=== PATIENT | male | born 1950 | race Caucasian/White ===

== ENCOUNTER 2017-01-28 17:41 | Emergency (ER) | payer OTHER ==
[2017-01-28] MEDS ORDERED: LIDOCAINE 1 % AMP 5 ML (SUTURES) SUBCUT STA (17:52)
[2017-01-28] MEDS ORDERED: TETANUS DIPHTHERIA TOXOIDS IM ONE (17:52)
[2017-01-28 17:54] VITALS: BP 106/64; TEMP 98.7; BMI 37.4
[2017-01-28] MEDS ORDERED: SILVER NITRATE APPLICATOR TP ONE ×2 (18:02)
[2017-01-28] MEDS ORDERED: TENIVAC IM ONE (18:04)
--- NOTE | 2017-01-28 18:14 | ED.PDOC ---
General ED Provider: Dr. ALYSHA BRADY Chief Complaint: Head Laceration Stated Complaint: head laceration/ forhead Time Seen by Physician: 17:45 (seen with full staff ) Mode of Arrival: Walk-In Information Source: Patient Exam Limitations: No limitations Nursing and Triage Documentation Reviewed and Agree: Yes Trauma/Injury Complaint Exam - Head Injury Complaint/Exam Location of Pain: Reports: Forehead Mechanism of Injury: Reports: Trauma (blunt) Onset/Duration: 20 min ago Symptoms Are: Still present Initial Severity: Moderate Current Severity: Moderate Aggravating: Reports: None Alleviating: Reports: None Associated Signs and Symptoms: Denies: Confusion, Memory loss, Seizure, Epistaxis, Dental malocclusion, Neck pain, Nausea, Vomiting Loss of Consciousness: None SDH Risk Factors: Present: None Related Surgical History: Reports: None Glascow Coma Scale (see protocol): 15 Focal Weakness: Present: None Focal Sensory Loss: Present: None Gait: Normal Nexus Low Risk Criteria: No post-midline CS tender, No evidence of intoxicat., No Altered LOC (barbra and staff present no neck or back pain), No focal neuro deficit, No distracting injuries Review of Systems - Review Of Systems Constitutional: Reports: No symptoms Eyes: Reports: No symptoms Ears, Nose, Mouth, Throat: Reports: No symptoms Respiratory: Reports: No symptoms Cardiac: Reports: No symptoms GI: Reports: No symptoms : Reports: No symptoms Musculoskeletal: Reports: No symptoms Skin: Reports: Other (forhead laceration) Neurological: Reports: No symptoms Endocrine: Reports: No symptoms Hematologic/Lymphatic: Reports: No symptoms All Other Systems: Reviewed and Negative Past Medical History - Past Medical History Previously Healthy: Yes Endocrine: Reports: None Cardiovascular: Reports: None Respiratory: Reports: None Hematological: Reports: None Gastrointestinal: Reports: None Genitourinary: Reports: None Neuro/Psych: Reports: None Musculoskeletal: Reports: None Cancer: Reports: None - Surgical History General Surgical History: Reports: None - Family History Family History: Reports: None - Social History Smoking Status: Never smoker Hx Substance Use: No Alcohol Screening: None - Immunizations Tetanus Shot up to Date: (unknown) Physical Exam - Physical Exam Appearance: Well-appearing, No pain distress, Well-nourished Eyes: ANAIS, EOMI, Conjunctiva clear ENT: Ears normal, Nose normal, Oropharynx normal Respiratory: Airway patent, Breath sounds clear, Breath sounds equal, Respirations nonlabored Cardiovascular: RRR, Pulses normal, No rub, No murmur GI/: Soft, Nontender, No masses, Bowel sounds normal, No Organomegaly Musculoskeletal: Normal strength, ROM intact, No edema, No calf tenderness Skin: Warm, Dry, Normal color Neurological: Sensation intact, Motor intact, Reflexes intact, Cranial nerves intact, Alert, Oriented Psychiatric: Affect appropriate, Mood appropriate Procedures - Laceration/Wound Repair No standard instances Wound Description: Linear Wound Length (cm): 1c.5 cm Wound Width: 3mm Wound Depth: 2mm small artery bleed noted which was stopped by silver nitrate Wound Explored: Clean Wound Irrigated: No Wound Prep: Hibiclens Anesthesia: Lidocaine (1ml) Wound Margins: Revised Wound Repaired With: Sutures Suture Size and Type: 40 prolene 6 sutures placed bleeding stopped by silver nitrate applicatio Number of Sutures: 6 Number of Pravin: 0 Layer Closure?: No Deep Layer Suture Size and Type: no see photos Critical Care Note - Critical Care Note Total Time (mins): 0 Course - Course Orders, Labs, Meds: Orders Category Date Time Status Lidocaine HCl/Pf [Lidocaine 1 % Amp 5 ml (Sutures)] MEDS 01/28/17 17:52 Discontinued 5 ml SUBCUT ONCE STA Silver Nitrate Applicator MEDS 01/28/17 18:02 Discontinued 1 each TP .STK-MED ONE Tetanus and Diphtheria Tox/Pf [Tenivac] MEDS 01/28/17 18:04 Discontinued 0.5 ml IM .STK-MED ONE Tetanus, Diphtheria Tox,Adult [Tetanus Diphtheria MEDS 01/28/17 17:52 Discontinued Toxoids] 0.5 ml IM .ONCE ONE Medications Discontinued Medications Generic Name Dose Route Start Last Admin Trade Name Freq PRN Reason Stop Dose Admin Lidocaine HCl 5 ml 01/28/17 17:52 Lidocaine 1 % Amp 5 Ml (Sutures) SUBCUT 01/28/17 17:53 ONCE STA Tetanus/Diphtheria Toxoids 0.5 ml 01/28/17 17:52 Tetanus Diphtheria Toxoids IM 01/28/17 17:53 .ONCE ONE Vital Signs: Temp Pulse Resp BP Pulse Ox 01/28/17 17:42 98.7 F 79 20 106/64 96 Departure - Departure Time of Disposition: 18:16 Disposition: HOME SELF-CARE Discharge Problem: Laceration of forehead Qualifiers: Encounter type: initial encounter Qualifier Code: (S01.81XA) Laceration without foreign body of other part of head, initial encounter Instructions: Laceration (ED), Care For Your Stitches (ED) Condition: Good Pt referred to PMD for follow-up: No Additional Instructions: Please call your Family Physician as soon as possible to schedule a follow-up appointment. Allergies/Adverse Reactions: Allergies No Known Allergies Allergy (Unverified 01/28/17 17:48) Home Medications: Ambulatory Orders 1 [No Reported Medications] 01/28/17 Disposition Discussed With: Patient
== END 2017-01-28 18:44 | disposition home or self-care (01) ==
LOC: ED 17:41
DX: S01.81XA Laceration without foreign body of other part of head, initial encounter (principal); W22.8XXA Striking against or struck by other objects, initial encounter
CPT/HCPCS: 90471; 99283